=== PATIENT | female | born 1970 | race Caucasian/White ===

== ENCOUNTER 2016-11-24 12:10 | Emergency (ER) | payer OTHER ==
[2016-11-24 13:17] VITALS: BP 151/90
--- NOTE | 2016-11-24 14:09 | UC ---
Hypertension HPI - HPI Summary HPI Summary: Had elevated blood pressure yesterday and today (yesterday 165/110); thinks it is from taking cold medicine, which has happened in the past. Also has been feeling very tired/exhausted "water-logged, like I just did a triathlon" for a few days. Says yesterday was the worst. No dietary changes, no new supplements or medications, no longer gets periods, denies bloody stool, has been using c- pap without changes, getting typical amount of sleep (usually about 8 hours). - History of Current Complaint Hx Obtained From: Patient ?: No Onset/Duration: Gradual Onset, Lasting Days Aggravating Factor(s): Nothing Alleviating Factor(s): Nothing Associated Signs And Symptoms: Negative: Vision Changes, Anxiety, Dizziness, SOB , Swelling <Madina Dias - Last Filed: 11/24/16 14:03> <Merlyn Lewis - Last Filed: 11/25/16 07:06> - History of Current Complaint Chief Complaint: UCGeneralIllness Stated Complaint: FATIGUE AND BLOOD PRESSURE Time Seen by Provider: 11/24/16 13:40 - Allergies/Home Medications Allergies/Adverse Reactions: Allergies Allergy/AdvReac Type Severity Reaction Status Date / Time Latex Allergy Hives Verified 11/24/16 13:18 PMH/Surg Hx/FS Hx/Imm Hx Endocrine History Of: Denies: Diabetes, Thyroid Disease Cardiovascular History Of: Reports: Hypertension - no meds Denies: Cardiac Disorders Respiratory History Of: Denies: COPD, Asthma GI/ History Of: Denies: Ulcer Cancer History Of: Denies: Breast Cancer - Surgical History Surgical History: Yes Surgery Procedure, Year, and Place: hysterectomy - Family History Known Family History: Negative: Blood Disorder - Social History Occupation: Employed Full-time - central office installer Alcohol Use: Occasionally Substance Use Type: None Smoking Status (MU): Never Smoked Tobacco <Madina Dias - Last Filed: 11/24/16 14:03> Review of Systems Constitutional: Fatigue Skin: Negative Eyes: Negative ENT: Negative Respiratory: Negative Cardiovascular: Negative Gastrointestinal: Negative Genitourinary: Negative Motor: Negative Neurovascular: Negative Musculoskeletal: Negative Neurological: Negative Psychological: Negative All Other Systems Reviewed And Are Negative: Yes <Madina Dias - Last Filed: 11/24/16 14:03> Physical Exam Triage Information Reviewed: Yes Appearance: Well-Appearing, No Pain Distress, Obese Vital Signs: Initial Vital Signs Temp 97.5 F 11/24/16 13:13 Pulse 88 11/24/16 13:13 Resp 20 11/24/16 13:13 BP 151/90 11/24/16 13:13 Pulse Ox 100 11/24/16 13:13 Vital Signs Reviewed: Yes Eye Exam: Normal Eyes: Positive: Conjunctiva Clear ENT Exam: Normal ENT: Positive: Normal ENT inspection, Hearing grossly normal, Pharynx normal, TMs normal. Negative: Tonsillar swelling Dental Exam: Normal Neck exam: Normal Neck: Positive: Supple, Nontender, No Lymphadenopathy Respiratory Exam: Normal Respiratory: Positive: Chest non-tender, Lungs clear, Normal breath sounds, No respiratory distress, No accessory muscle use Cardiovascular Exam: Normal Cardiovascular: Positive: RRR, No Murmur Abdominal Exam: Normal Abdomen Description: Positive: Nontender, No Organomegaly Musculoskeletal Exam: Normal Musculoskeletal: Positive: Strength Intact, ROM Intact, No Edema Neurological Exam: Normal Neurological: Positive: Alert Psychological Exam: Normal Skin Exam: Normal <Madina Dias - Last Filed: 11/24/16 14:03> Vital Signs: Initial Vital Signs Temp 97.5 F 11/24/16 13:13 Pulse 88 11/24/16 13:13 Resp 20 11/24/16 13:13 BP 151/90 11/24/16 13:13 Pulse Ox 100 11/24/16 13:13 <Merlyn Lewis - Last Filed: 11/25/16 07:06> Hypertension Course/Dx - Differential Dx/Diagnosis Provider Diagnoses: Fatigue. elevated blood pressure <Madina Dias - Last Filed: 11/24/16 14:03> Discharge <Madnia Dias - Last Filed: 11/24/16 14:03> <Merlyn Lewis - Last Filed: 11/25/16 07:06> - Discharge Plan Condition: Stable Disposition: HOME Patient Education Materials: Fatigue (ED) Referrals: Murtaza Cash MD [Primary Care Provider] - 1 Week Additional Instructions: As we discussed, high blood pressure is more likely to develop with each passing year due to age-related changes. Though your elevated readings could be medication-related, I recommend you check it every 2-3 days and follow up with Dr. Cash's office. Fatigue is a notoriously difficult symptom to diagnose; if it persists for more than a week, you should see your primary care provider for further testing. In the mean time, make sure that every day you get 30 minutes of exercise, get into the sunshine if you can, eat enough real food with fruits and vegetables, and sleep at least 8 hours. Attestation Statement User Type: Provider - I was available for consult. This patient was seen by the advanced practice provider. The patient was not presented to, seen by, or examined by me.-Pati <Merlyn Lewis - Last Filed: 11/25/16 07:06>
[2016-11-24 18:19] LABS: Hematocrit 41 % (35-47); Hemoglobin 13.9 g/dl (12.0-16.0); Mean Corpuscular HGB Conc 34 g/dl (31-36); Mean Corpuscular Hemoglobin 31 pg (27-31); Mean Corpuscular Volume 93 fL (80-97); Mean Platelet Volume 8 um3 (7.4-10.4); Red Blood Count 4.44 10^6/ul (4.0-5.4); Red Cell Distribution Width 13 % (10.5-15); White Blood Count 8.1 10^3/ul (3.5-10.8)
[2016-11-24 18:32] LABS: Albumin 4.2 g/dL (3.2-5.2); Calcium 9.5 mg/dL (8.6-10.3); EGFR African American 89.8 (>60); EGFR Non-African American 69.8 (>60); Globulin 2.9 g/dL (2-4); Potassium 4.3 mmol/L (3.5-5.0); Total Bilirubin 0.6 mg/dL (0.2-1.0); Total Protein 7.1 g/dL (6.4-8.9)
== END 2016-11-24 14:05 | disposition home or self-care (01) ==
LOC: UCEAST 12:10
DX: R53.83 Other fatigue (principal); I10 Essential (primary) hypertension; Z91.040 Latex allergy status
CPT/HCPCS: 36415; 80053; 85025; 99211; G0463

== ENCOUNTER 2019-06-15 12:47 | Emergency (ER) | payer OTHER ==
--- NOTE | 2019-06-15 13:12 | ED ---
Palpitations / Dysrhythmia - HPI Summary HPI Summary: 49 year old F referred to [facility] by Dr. Cash complains of acute onset intermittent irregular heart rate and hypertension with associated headache x6 days. States that the irregular heart rate and hypertension do not occur simultaneously. States she mostly notices sx when she is sitting and at night. No dizziness or light headedness. No pain/swelling in bilateral lower extremities. Patient denies fever, chills, erythema of eyes, sore throat, chest pain, shortness of breath, cough, abdominal pain, nausea/vomiting, dysuria, hematuria, myalgia, edema, rash. The patient rates the pain 0/10 in severity. Symptoms aggravated by nothing. Symptoms alleviated by nothing. FHx thyroid disease in mother. No caffeine consumption or nicotine use. States she drinks iced tea. Does not take any meds for hypertension. States she takes Xyzal for hx allergies. - History of Current Complaint Chief Complaint: EDDysrhythmPalp Time Seen by Provider: 06/15/19 13:10 Hx Obtained From: Patient Onset/Duration: Lasting Days - 6, Still Present Timing: Intermittent Episodes Lasting: Severity Currently: None Character: Irregular Aggravating: Nothing Alleviating: Nothing - Allergy/Home Medications Allergies/Adverse Reactions: Allergies Allergy/AdvReac Type Severity Reaction Status Date / Time aspartame Allergy Blurred Verified 06/15/19 12:57 Vision horse dander Allergy Anaphylatic Verified 06/15/19 12:57 Shock latex Allergy Hives Verified 06/15/19 12:57 PMH/Surg Hx/FS Hx/Imm Hx Endocrine/Hematology History: Denies: Hx Diabetes, Hx Thyroid Disease Cardiovascular History: Reports: Hx Hypertension - no meds Respiratory History: Denies: Hx Asthma, Hx Chronic Obstructive Pulmonary Disease (COPD) GI History: Denies: Hx Ulcer - Cancer History Hx Chemotherapy: No Hx Radiation Therapy: No - Surgical History Surgery Procedure, Year, and Place: hysterectomy Infectious Disease History: Yes Infectious Disease History: Denies: Hx Clostridium Difficile, Hx Hepatitis, Hx Human Immunodeficiency Virus (HIV), Hx of Known/Suspected MRSA, Hx Shingles, Hx Tuberculosis, Traveled Outside the [place] in Last 30 Days - Family History Known Family History: Positive: Other - NEG: breast cancer - Social History Alcohol Use: Occasionally Substance Use Type: Reports: None Smoking Status (MU): Never Smoked Tobacco Review of Systems Negative: Fever, Chills Negative: Erythema Negative: Sore Throat Positive: Other - irregular HR, HTN. Negative: Chest Pain Negative: Shortness Of Breath, Cough Negative: Abdominal Pain, Vomiting, Nausea Negative: dysuria, flank pain Musculoskeletal: Negative - pain/swelling in bilateral lower extremities Negative: Myalgia, Edema Negative: Rash Neurological: Negative - Dizziness, light headedness Positive: Headache All Other Systems Reviewed And Are Negative: Yes Physical Exam - Summary Physical Exam Summary: Constitutional: Well-developed, Well-nourished, Alert. (-) Distressed Skin: Warm, Dry HENT: Normocephalic; Atraumatic Eyes: Conjunctiva normal Neck: Musculoskeletal ROM normal neck. (-) JVD, (-) Stridor, (-) Tracheal deviation Cardio: Rhythm regular, rate normal, Heart sounds normal; Intact distal pulses; The pedal pulses are 2+ and symmetric. Radial pulses are 2+ and symmetric. (-) Murmur Pulmonary/Chest wall: Effort normal. (-) Respiratory distress, (-) Wheezes, (-) Rales Abd: Soft, (-) tenderness, (-) Distension, (-) Guarding, (-) Rebound Musculoskeletal: (-) Edema Lymph: (-) Cervical adenopathy Neuro: Alert, Oriented x3 Psych: Mood and affect Normal Triage Information Reviewed: Yes Vital Signs On Initial Exam: Initial Vitals Temp Pulse Resp BP Pulse Ox 97.9 F 93 16 185/116 100 06/15/19 12:53 06/15/19 12:53 06/15/19 12:53 06/15/19 12:53 06/15/19 12:53 Vital Signs Reviewed: Yes Procedures - Sedation Patient Received Moderate/Deep Sedation with Procedure: No Diagnostics - Vital Signs Vital Signs Temp Pulse Resp BP Pulse Ox 06/15/19 12:53 97.9 F 93 16 185/116 100 - Laboratory Result Diagrams: 06/15/19 13:43 06/15/19 13:43 Lab Statement: Any lab studies that have been ordered have been reviewed, and results considered in the medical decision making process. - EKG 1330 Cardiac Rate: NL - 88 BPM EKG Rhythm: Sinus Rhythm Re-Evaluation - Re-Evaluation First Eval Re-Evaluation Time: 15:09 Comment: agrees to d/c. understands d/c instructions Course/Dx - Course Course Of Treatment: 49 year old F referred by Dr. Cash complains of acute onset intermittent irregular heart rate and hypertension with associated headache x6 days. Physical exam findings: unremarkable. Bloodwork results with no significant abnormalities except for MCH 32. EKG shows NSR 88 BPM. Patient has been in normal sinus rhythm since she has been in the ED. At times, she is symptomatic with her hypertension. Will start her on anti-hypertensives today. Patient received lisinopril 10 mg PO in the ED. Patient will be discharged home with prescription for lisinopril 10 mg PO and follow up from Dr. Cash in 2-3 days. She was encouraged to keep a blood pressure journal and take her blood pressure 3 times a day. Patient was instructed to return to Emergency Department for new or worsening symptoms. Patient understands and is agreeable to this plan. - Diagnoses Provider Diagnoses: Palpitations, Uncontrolled hypertension Discharge ED - Sign-Out/Discharge Documenting (check all that apply): Patient Departure - Discharge - Discharge Plan Condition: Stable Disposition: HOME Prescriptions: Lisinopril TAB* [Prinivil TAB 10 MG*] 10 mg PO DAILY #7 tab Patient Education Materials: Heart Palpitations (ED), Hypertension (ED) Referrals: Murtaza Cash MD [Primary Care Provider] - 2 Days Additional Instructions: Keep a blood pressure journal. Take your blood pressure 3 times a day. Follow up with Dr. Cash within 2-3 days. Return to the Emergency Department for new or worsening symptoms. - Attestation Statements Document Initiated by Scribe: Yes Documenting Scribe: Agatha Valerio Provider For Whom Scribe is Documenting (Include Credential): Ronni Mendenhall MD Scribe Attestation: Agatha Lyons, scribed for Ronni Mendenhall MD on 06/15/19 at 1503.
[2019-06-15 13:52] LABS: ABS Basophils 0.1 10^3/ul (0-0.2); ABS Eosinophils 0.2 10^3/ul (0-0.6); ABS Lymphocytes 1.7 10^3/ul (1.0-4.8); ABS Monocytes 0.7 10^3/ul (0-0.8); ABS Neutrophils 5.7 10^3/ul (1.5-7.7); Hematocrit 42 % (35-47); Hemoglobin 14.3 g/dL (12.0-16.0); Lymphocyte % 19.6 %; Mean Corpuscular HGB Conc 34 g/dL (31-36); Mean Corpuscular Hemoglobin 32 pg (27-31); Mean Corpuscular Volume 94 fL (80-97); Mean Platelet Volume 7.5 fL (7.4-10.4); Nucleated Red Blood Cells % 0.1; Platelet Count 300 10^3/uL (150-450); Red Blood Count 4.44 10^6 /uL (3.70-4.87); Red Cell Distribution Width 13 % (10-15); White Blood Count 8.4 10^3/uL (3.5-10.8)
[2019-06-15 14:09] LABS: Albumin 4.3 g/dL (3.2-5.2); Albumin/Globulin Ratio 1.4 (1-3); BUN/Creatinine Ratio 11.4 (8-20); Calcium 9.8 mg/dL (8.6-10.3); EGFR African American 93.2 (>60); Globulin 3.1 g/dL (2-4); Magnesium 2.1 mg/dL (1.9-2.7); Total Bilirubin 0.6 mg/dL (0.2-1.0); Total Protein 7.4 g/dL (6.4-8.9)
[2019-06-15 14:10] LABS: Troponin I 0.01 ng/mL (<0.04)
[2019-06-15 14:39] LABS: TSH (Thyroid Stimulating Horm) 2.62 mcIU/mL (0.34-5.60)
[2019-06-15 15:21] LABS: T4, Total 6.53 mcg/dL (6.09-12.23)
[2019-06-15] MEDS: Lisinopril TAB* 10 MG PO ONE (15:34)
[2019-06-15 15:35] VITALS: BP 165/96
== END 2019-06-15 16:02 | disposition home or self-care (01) ==
LOC: ED 12:47
DX: R00.2 Palpitations (principal); I10 Essential (primary) hypertension; Z91.040 Latex allergy status
CPT/HCPCS: 36415; 80053; 83605; 83735; 84436; 84443; 84484; 85025; 93005; 99283; A9270-GY

== ENCOUNTER 2019-09-22 18:46 | Emergency (ER) | payer BC, OTHER ==
--- OUTSIDE RECORDS SUMMARY | 2019-09-22 18:53 | XMS REPORT | Continuity of Care Document ---
:1970 External Reference #:[id number] Author Name Ashley Dash O.D. Address [address] [place] [id number] Care Team Providers Name Role Phone Murtaza Cash M.D. - Internal Care Team Information Commercial Pain[employer] Medicine Problems Active Problems Provider Date Seasonal allergy Onset: Open angle with borderline findings Ashley Dash O.D. Onset: 12/27/2014 Open angle with borderline findings, high Ashley Dash O.D. Onset: 2015 risk, bilateral Open-angle glaucoma - borderline Ashley Dash O.D. Onset: 06/12/2016 Environmental allergy Onset: Social History Type Date Description Comments Sex Unknown ETOH Use Occasionally consumes alcohol Tobacco Use Start: Unknown Patient has never smoked Recreational Drug Use Never Used Drugs Smoking Status Reviewed: 07/28/19 Patient has never smoked Allergies, Adverse Reactions, Alerts Active Allergies Reaction Severity Comments Date Aspartame 12/27/2014 Latex Contact dermatitis, Urticaria 01/01/2015 Medications Active Medications SIG Qnty Indications Ordering Provider Date Omeprazole daily Unknown Ibuprofen as needed Unknown Xyzal Allergy 24HR Unknown 5mg Tablets Lisinopril TK 1 T PO qd Unknown 10mg Tablets Immunizations Description No Information Available Vital Signs Description No Information Available Results Description No Information Available Procedures Date Code Description Status 01/27/2019 55150 Scanning Computerized Ophthalmic Diagnostic Imag Posterior Completed Seg On 01/27/2019 26030 Visual Field Exam Extended Completed 01/27/2019 83733 Est Patient Comprehensive Exam Completed Medical Devices Description No Information Available Encounters Description No Information Available Assessments Date Code Description Provider 07/28/2019 H40.023 Open angle with borderline findings, high Ashley Dash O.D. risk, bilateral 01/27/2019 H40.023 Open angle with borderline findings, high Ashley Dash O.D. risk, bilateral Plan of Treatment 07/28/2019 - Ashley Dash O.D.H40.023 Open angle with borderline findings, high risk, bilateralComments:Smoking can increase the risk of developing or worsening any eye related disease, as well as affect your overall health. If you are a smoker, we strongly recommend that you quit.If you are not a smoker, we strongly recommend that you do not start. Dr. Dash is considering you a Glaucoma suspect. This means the eye pressure in your eyes are higher than average, your optic nerve appearance is suspicious, or you have strong risk factors; but you have not been diagnosed with Glaucoma. Follow up appointments are very important to keep.Follow up:6 MONTHS DFE/OCT NERVE/VF 30-2 Functional Status Description No Information Available Mental Status Description No Information Available Referrals Description No Information Available
[2019-09-22 19:09] VITALS: BP 140/68
--- NOTE | 2019-09-22 19:39 | UC ---
Complaint Female HPI - HPI Summary HPI Summary: 49-year-old feel presenting with urinary frequency, urgency, dysuria 2 days. Notes hematuria last night. Denies lower abdominal pain. Denies fever and chills. Denies nausea and vomiting. Notes mild lower back pain. Denies taking anything for symptomatic relief. - History Of Current Complaint Chief Complaint: UCGU Stated Complaint: UTI SYMPTOMS Hx Obtained From: Patient Pain Intensity: 5 Pain Scale Used: 0-10 Numeric - Allergies/Home Medications Allergies/Adverse Reactions: Allergies Allergy/AdvReac Type Severity Reaction Status Date / Time aspartame Allergy Blurred Verified 09/22/19 19:08 Vision horse dander Allergy Anaphylatic Verified 09/22/19 19:08 Shock latex Allergy Hives Verified 09/22/19 19:08 Home Medications: Home Medications Lisinopril TAB* [Prinivil TAB 10 MG*] 10 mg PO DAILY #7 tab 06/15/19 [Rx Confirmed 09/22/19] Ibuprofen 600 mg PO ONCE PRN 09/22/19 [History Confirmed 09/22/19] Levocetirizine Dihydrochloride [Xyzal] 1 tab PO DAILY PRN 09/22/19 [History Confirmed 09/22/19] Phenazopyridine TAB* [Pyridium 100 mg TAB*] 100 mg PO TID #9 tab 09/22/19 [Rx] Sulfamethox/Trimethoprim DS* [Bactrim DS 800/160 TAB*] 1 tab PO BID #10 tab [Rx] PMH/Surg Hx/FS Hx/Imm Hx - Surgical History Surgical History: Yes Surgery Procedure, Year, and Place: hysterectomy. tubal - Family History Known Family History: Positive: Other - NEG: breast cancer Negative: Blood Disorder - Social History Alcohol Use: Occasionally Substance Use Type: None Smoking Status (MU): Never Smoked Tobacco Review of Systems All Other Systems Reviewed And Are Negative: Yes Constitutional: Positive: Negative Respiratory: Positive: Negative Cardiovascular: Positive: Negative Gastrointestinal: Positive: Negative Genitourinary: Positive: Dysuria, Hematuria, Frequency, Urgency Physical Exam - Summary Physical Exam Summary: Vital Signs Reviewed: Yes A+Ox3, no distress Eyes: Conjunctiva Clear ENT: Hearing grossly normal neck: supple Respiratory: Positive: No respiratory distress, No accessory muscle use + CTA throughout no w/r Cardiovascular: RRR nl s1, s2 no m/r Abd: soft + BS nt/nd no guarding, no CVA tenderness Musculoskeletal Exam: COLLIER x 4 without difficulty Neurological: Positive: Alert, ambulatory without difficulty Psychological: Positive: Normal Response To Family Skin: Positive: no rash, no ecchymosis Vital Signs: Initial Vital Signs Temp 98.9 F 09/22/19 19:03 Pulse 96 09/22/19 19:03 Resp 18 09/22/19 19:03 BP 140/68 09/22/19 19:03 Pulse Ox 100 09/22/19 19:03 Lab Results 09/22/19 Range/Units 19:19 POC Urine Color Light yellow POC Urine Clarity Cloudy POC Urine pH 7.0 (5-9) POC Ur Specif [place] 1.015 (1.010-1.030) POC Urine Protein 2+ A (Negative) POC Ur Glucose (UA) Negative (Negative) POC Urine Ketones Negative (Negative) POC Urine Blood 2+ A (Negative) POC Urine Nitrite Negative (Negative) POC Urine Bilirubin Negative (Negative) POC Urine Urobilinogen 1.0 (Negative) POC U Leukocyte Esteras 3+ A (Negative) Complaint Female Dx - Course Course Of Treatment: I treated patient with bactrim and pyridium for UTI and instructed to increase fluid intake. Instructed to go to ED with any new or worsening symptoms. Patient voiced understanding and agreed with the treatment plan. - Differential Dx/Diagnosis Provider Diagnosis: UTI (urinary tract infection) Discharge ED - Sign-Out/Discharge Documenting (check all that apply): Patient Departure All imaging exams completed and their final reports reviewed: No Studies - Discharge Plan Condition: Stable Disposition: HOME Prescriptions: Phenazopyridine TAB* [Pyridium 100 mg TAB*] 100 mg PO TID #9 tab Sulfamethox/Trimethoprim DS* [Bactrim DS 800/160 TAB*] 1 tab PO BID #10 tab Patient Education Materials: Urinary Tract Infection in Women (ED) Referrals: Murtaza Cash MD [Primary Care Provider] - If Needed Additional Instructions: As discussed, take Bactrim for treatment of your UTI. You may also take the pyridium as needed for symptomatic relief. Increase your fluid intake. Follow up with your PCP if symptoms do not resolve. Go to the emergency room with any new or worsening symptoms. - Billing Disposition and Condition Condition: STABLE Disposition: Home
== END 2019-09-22 19:21 | disposition home or self-care (01) ==
LOC: UCEAST 18:46
DX: N39.0 Urinary tract infection, site not specified (principal); R31.9 Hematuria, unspecified; Z91.040 Latex allergy status; Z91.09 Other allergy status, other than to drugs and biological substances
CPT/HCPCS: 81003; 87077; 87086; 87186; 99212; G0463